=== PATIENT | male | born 1955 | race Caucasian/White ===

== ENCOUNTER → 2017-08-27 | Outpatient (CLI) | payer BC ==
[~2017-08-27] MED LIST: ASCO10003 PO; CALC-5 PO; DEPLIN PO; GINK60CA2 PO; PLMIN90 IN; VNTHFA/IN INH
[2017-08-27 13:51] VITALS: BP 121/78; PULSE 59; TEMP 36.7; O2SAT 96
--- NOTE | 2017-08-27 16:45 | Radiation Oncology Follow-Up ---
Radiation Oncology Follow-Up Date of Visit Aug 27, 2017. Reason For Visit Annual follow-up Radiation Completion Date Seed Implant - Monotherapy - 08/27/2011 Diagnosis (1) Prostate cancer Status: Resolved Onset Date: 05/29/2011 Permanent Comment: Rising PSA to 4.86 Status post biopsy revealing adenocarcinoma, Donnelly grade 3+3, biopsy stage TIIc Status post seed implant as monotherapy with cesium 131 completed 08/27/2011 Last Edited By: Greer Sahni on Jun 22, 2015 13:46 Interim History He is been doing well over this past year. He gave an AUA score of 4. He completed and expanded prostate cancer index composite for clinical practice and gave a score of 0 of 12 and urinary incontinence symptoms. He gave a score of 0 of 12 urinary irritation symptoms. He gave a score of 0 of 12 in bowel symptoms. He gave a score of 5 of 12 and sexual symptoms. He gave a score of 4 of 12 in hormonal vitality symptoms. He is total was 9 of 60. We reviewed his PSAs. He had a PSA 08/07/2016 that was 0.125. The PSA prior was 2014 and that was 1.320. Allergies Coded Allergies: No Known Allergies (Unverified , 08/02/11) Home Medications Scheduled Ascorbic Acid (Vitamin C), 1 TAB PO DAILY Budesonide (Inhaler) (Pulmicort Flexhaler), 1 PUFF IN BID Calcium-Magnesium W/ Vitamin D (Calcium 500), 1 TAB PO DAILY Ginkgo Biloba (Ginkgo Biloba), 60 MG PO DAILY Scheduled PRN Albuterol Hfa (Ventolin Hfa), 2-4 PUFFS INH Q6H PRN for Shortness of Breath Review of Systems Gastrointestinal: Symptoms: WNL Oral: Symptoms: No Problems Respiratory: Symptoms: WNL Other Respiratory: Cough from asthma Urinary: Symptoms: WNL Comments: See AUA & EPIC Skin: Symptoms: No Problems Physical Exam Vital Signs Date Time Temp Pulse Resp B/P (MAP) Pulse Ox O2 Delivery O2 Flow Rate FiO2 08/27/17 13:51 36.7 59 16 121/78 96 Fatigue: None General Appearance: no apparent distress Eyes: normal inspection, EOMI ENT: normal ENT inspection, hearing grossly normal Respiratory/Chest: lungs clear, no respiratory distress, no accessory muscle use Cardiovascular: regular rate, rhythm, no gallop, no murmur Abdomen: non tender, soft, no organomegaly Anal / Rectum: Normal sphincter tone. Prostate consistent with seed implant. No rectal masses no rectal bleeding. Extremities: no pedal edema Neurologic/Psychiatric: no motor/sensory deficits, alert, normal mood/affect Skin: warm/dry Lymphatic: no adenopathy Pain Management Patient Reports Pain: No Pain Management Plan He denied pain therefore requires no pain management. Laboratory Laboratory Results: were reviewed, and pertinent findings noted below Laboratory Comments: Labs were reviewed in the interim history. Test 08/27/17 14:15 Prostate Specific Antigen 0.062 ng/ml (0.000-4.000) Pathology Pathology Results: not applicable Imaging Imaging Studies: not applicable Assessment & Plan Plan: A PSA was drawn today prior to examination. He'll be notified as to results. Continue annual follow-up with urology. Recheck PSAs yearly. A follow-up appointment with our office was not given. He will call if he has any questions or concerns we'll be happy to see him. He'll continue regular follow-up with his primary care physician. Total Time In Follow-Up I spent 20 minutes speaking to the patient and performing examination. I spent 15 minutes reviewing information in completing this note. Copy To Herbert Lee MD; Vijay Hurtado M.D.
== END | disposition home or self-care (01) ==
LOC: C.ONC 13:41
PROVIDERS: ATTEND Physician Assistant Medical
DX: Z08 Encounter for follow-up examination after completed treatment for malignant neoplasm (principal); Z92.3 Personal history of irradiation; Z85.46 Personal history of malignant neoplasm of prostate